=== PATIENT | male | born 1965 | race African-American/Black ===

== ENCOUNTER 2017-02-05 08:38 | Emergency (ER) | payer OTHER ==
[2017-02-05 08:53] VITALS: BP 137/94; PULSE 72; TEMP 98.1; BMI 30.2
--- NOTE | 2017-02-05 09:30 | PDOC ---
History of Present Illness - General Chief Complaint: Pain Stated Complaint: LT LEG BRUISING Time Seen by Provider: 02/05/17 09:05 History Source: Patient Exam Limitations: No Limitations - History of Present Illness Initial Comments: 02/05/17 09:29 c/o pain and swelling to lower left leg/ upper calf. 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 States had a long car ride 2 weeks ago, and was concerned about a DVT. Has no history of deep vein thrombosis but does suffer from varicosities. No fevers, no swelling or erythema to his leg although feels he has a "lump to his upper left calf". No shortness of breath, chest pain palpitations. 02/05/17 10:15 02/05/17 13:09 02/05/17 13:10 02/05/17 13:10 Occurred: reports: yesterday, last week Severity: reports: mild, moderate Pain Location: reports: lower extremity (left ) Modifying Factors: improves with: None Loss of Consciousness: no loss of consciousness Associated Symptoms (Fall): denies symptoms Past History - Travel Traveled outside of the country in the last 30 days: No Close contact w/someone who was outside of country & ill: No - Past Medical History Allergies/Adverse Reactions: Allergies Allergy/AdvReac Type Severity Reaction Status Date / Time No Known Drug Allergies Allergy Verified 02/05/17 08:45 Home Medications: Ambulatory Orders NK [No Known Home Medication] 02/05/17 Anemia: No Asthma: No Cancer: No Cardiac Disorders: No CVA: No COPD: No CHF: No Dementia: No Diabetes: No GI Disorders: No Disorders: No HTN: No Hypercholesterolemia: No Liver Disease: No Seizures: No Thyroid Disease: No Other medical history: none - Surgical History Abdominal Surgery: No Appendectomy: No Cardiac Surgery: No Cholecystectomy: No Lung Surgery: No Neurologic Surgery: No Orthopedic Surgery: Yes (ARTHROSCOPY LEFT KNEE & RIGHT,RIGHT FEMUR FRACTURE) - Immunization History Immunization Up to Date: No - Psycho/Social/Smoking Cessation Hx Anxiety: No Suicidal Ideation: No Smoking Status: Yes Smoking History: Never smoked Have you smoked in the past 12 months: No Number of Cigarettes Smoked Daily: 0 Cigars Per Day: 1 Information on smoking cessation initiated: No Hx Alcohol Use: No Drug/Substance Use Hx: No Substance Use Type: Cocaine, Marijuana Hx Substance Use Treatment: No Review of Systems - Review of Systems Able to Perform ROS?: Yes Is the patient limited Albanian proficient: Yes Constitutional: Yes: See HPI. No: Symptoms Reported, Chills HEENTM: Yes: See HPI. No: Symptoms Reported Respiratory: Yes: See HPI. No: Symptoms reported, Cough, Shortness of Breath, Wheezing ABD/GI: Yes: Symptoms Reported : Yes: Symptoms Reported, See HPI All Other Systems: Reviewed and Negative *Physical Exam - Vital Signs Last Vital Signs Temp Pulse Resp BP Pulse Ox 98.1 F 72 18 137/94 100 02/05/17 08:46 02/05/17 08:46 02/05/17 08:46 02/05/17 08:46 02/05/17 08:46 - Physical Exam Comments: 02/05/17 10:19 General Appearance: Yes: Nourished, Appropriately Dressed. No: Apparent Distress HEENT: positive: EOMI, CITLALY, Normal ENT Inspection, TMs Normal, Pharynx Normal Neck: positive: Supple. negative: Lymphadenopathy (R), Lymphadenopathy (L) Respiratory/Chest: positive: Lungs Clear, Normal Breath Sounds Gastrointestinal/Abdominal: positive: Soft Extremity: positive: Other (extensive tortuous veins bilateral legs, has no gross swelling to one side versus the other, mass palpated to the left upper calf appears to be the superior aspect of his gastrocnemius muscle that is nontender, torturous, or firm. 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 Will ultrasound to rule out DVT and probable referral to vascular surgery Medical Decision Making - Medical Decision Making 02/05/17 10:53 US negative for DVT/ will refer to Vasc fro Vericose veins eval. *DC/Admit/Observation/Transfer Diagnosis at time of Disposition: Varicose veins of both lower extremities - Discharge Dispostion Disposition: HOME Condition at time of disposition: Stable Admit: No - Referrals Referrals: Satya Doshi MD [Staff Physician] - - Patient Instructions Printed Discharge Instructions: DI for Varicose Veins Additional Instructions: Rest, ice to area on and off for 15 minutes 4-6 times a day Avoid heavy lifting or exercise until pain and swelling is resolved or until further directed Keep area highly elevated to reduce swelling Use splints/Bubba wrap as directed Followup with orthopedist in one to 2 days if not improving, if significantly improved may wait one week for followup with orthopedist May use ibuprofen 2-200 mg tablets every 6 hours as needed for pain - Post Discharge Activity Work/School Note: Back to Work
== END 2017-02-05 11:07 | disposition home or self-care (01) ==
LOC: JERFT 08:38 → JER 08:38 → JERFT 11:07
DX: I83.813 Varicose veins of bilateral lower extremities with pain (principal)
CPT/HCPCS: 93971-TC; 99281-25

== ENCOUNTER 2019-03-07 20:49 | Emergency (ER) | payer OTHER | END 2019-03-07 22:30 | disposition home or self-care (01) | LOC: JER 20:49 → JERFT 22:30 ==

== ENCOUNTER 2019-07-23 10:19 | Emergency (ER) | payer OTHER ==
[2019-07-23 10:23] VITALS: BP 120/85; PULSE 98; TEMP 98; BMI 28.0
--- NOTE | 2019-07-23 10:38 | PDOC ---
History of Present Illness - General Chief Complaint: Injury Stated Complaint: INJURY Time Seen by Provider: 07/23/19 10:34 History Source: Patient Exam Limitations: No Limitations - History of Present Illness Initial Comments: 07/23/19 Patient reports striking a wall with right hand early this morning causing injury to right lateral hand. Has obvious deformity with some mild numbness to his fifth and fourth digits. Occurred: reports: yesterday Severity: reports: mild, moderate Pain Location: reports: upper extremity (right hand) Method of Injury: Yes: direct blow Modifying Factors: improves with: None Associated Symptoms (Fall): denies symptoms Past History - Travel Traveled outside of the country in the last 30 days: No Close contact w/someone who was outside of country & ill: No - Past Medical History Allergies/Adverse Reactions: Allergies Allergy/AdvReac Type Severity Reaction Status Date / Time No Known Drug Allergies Allergy Verified 07/23/19 10:23 Home Medications: Ambulatory Orders Ibuprofen [Motrin -] 600 mg PO TID #30 tablet 03/07/19 Omeprazole/Sodium Bicarbonate [Omeprazole-Bicarb 20-1,100 Cap] 1 each PO DAILY # 30 capsule 03/21/19 Anemia: No Asthma: No Cancer: No Cardiac Disorders: No CVA: No COPD: No CHF: No Dementia: No Diabetes: No GI Disorders: No Disorders: No HTN: No Hypercholesterolemia: No Liver Disease: No Seizures: No Thyroid Disease: No - Surgical History Abdominal Surgery: No Appendectomy: No Cardiac Surgery: No Cholecystectomy: No Lung Surgery: No Neurologic Surgery: No Orthopedic Surgery: Yes (ARTHROSCOPY LEFT KNEE & RIGHT,RIGHT FEMUR FRACTURE) - Immunization History Immunization Up to Date: No - Psycho Social/Smoking Cessation Hx Smoking Status: Yes Smoking History: Never smoked Have you smoked in the past 12 months: No Number of Cigarettes Smoked Daily: 0 Cigars Per Day: 1 Hx Alcohol Use: No Drug/Substance Use Hx: No Substance Use Type: Cocaine, Marijuana Hx Substance Use Treatment: No Review of Systems - Review of Systems Able to Perform ROS?: Yes Is the patient limited Pakistani proficient: Yes Constitutional: Yes: Symptoms Reported, See HPI, Malaise HEENTM: Yes: See HPI. No: Symptoms Reported Musculoskeletal: Yes: Symptoms Reported, See HPI, Joint Pain Integumentary: Yes: Symptoms Reported, See HPI, Bruising Neurological: Yes: See HPI. No: Symptoms reported All Other Systems: Reviewed and Negative *Physical Exam - Vital Signs Last Vital Signs Temp Pulse Resp BP Pulse Ox 98 F 98 H 18 120/85 99 07/23/19 10:20 07/23/19 10:20 07/23/19 10:20 07/23/19 10:20 07/23/19 10:20 - Physical Exam General Appearance: Yes: Nourished, Appropriately Dressed, Apparent Distress, Mild Distress, Moderate Distress HEENT: positive: CITLALY, Normal ENT Inspection, TMs Normal, Pharynx Normal Neck: positive: Supple. negative: Tender Respiratory/Chest: positive: Lungs Clear, Normal Breath Sounds Gastrointestinal/Abdominal: positive: Tender, Soft Musculoskeletal: positive: Normal Inspection. negative: Vertebral Tenderness Extremity: positive: Normal Inspection, Tender, Swelling, Other (With pointing/ tenting to right hand lateral aspect. Range of motion of fingers limited secondary to deformity. Unable to make fist secondary to pain and deformity. Neurovascular intact to fingers.). 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 Discussed with JODI Bustillo for orthopedist group Who discussed with . States to splint and will be seen in orthopedic clinic on Wednesday for further treatment. 07/23/19 14:22 Discharge - Discharge Information Problems reviewed: Yes Clinical Impression/Diagnosis: Fracture, boxers Condition: Stable Disposition: HOME - Admission No - Follow up/Referral Referrals: King Guzman MD [Primary Care Provider] - Ruel Hamilton MD [Staff Physician] - - Patient Discharge Instructions Patient Printed Discharge Instructions: DI for Boxer's Fracture Additional Instructions: Rest, ice to area on and off for 15 minutes 4-6 times a day Avoid heavy lifting or exercise until pain and swelling is resolved or until further directed Keep area highly elevated to reduce swelling Use splints/Bubba wrap as directed Followup with orthopedist in one to 2 days if not improving, if significantly improved may wait one week for followup with orthopedist May use ibuprofen every 6 hours as needed for pain - Post Discharge Activity Work/Back to School Note: Back to Work
== END 2019-07-23 12:27 | disposition home or self-care (01) ==
LOC: JERFT 10:19
PROC: 2W3CX1Z Immobilization of Right Lower Arm using Splint (ICD-10-PCS; principal; 2019-07-23)
DX: S62.330A Displaced fracture of neck of second metacarpal bone, right hand, initial encounter for closed fracture (principal); S62.324A Displaced fracture of shaft of fourth metacarpal bone, right hand, initial encounter for closed fracture; W22.09XA Striking against other stationary object, initial encounter; Y93.89 Activity, other specified; Y92.89 Other specified places as the place of occurrence of the external cause; Y99.8 Other external cause status
CPT/HCPCS: 29126; 73130-TC-RT-FY; 99281-25

== ENCOUNTER 2019-07-27 13:50 | Day surgery (SDC) | payer OTHER ==
[2019-07-26 10:27] VITALS: BMI 28.5
--- NOTE | 2019-07-27 14:59 | OP ---
Operative Note - Note: Operative Date: 07/27/19 Pre-Operative Diagnosis: Right distal radius fracture Operation: Right distal radius ORIF Post-Operative Diagnosis: Same as Pre-op Surgeon: Rj Rowe Speeder Frame Tender: Ivy Monteiro Operative Report Dictated: Yes
[2019-07-27] MEDS ORDERED: MIDAZOLAM HCL 2 MG/2 ML SINGLE DOSE VIAL ONE ×2 (16:48)
[2019-07-27] MEDS ORDERED: BUPIVACAINE HCL 0.25% 125 MG/50 ML VIAL ONE (16:48)
[2019-07-27] MEDS ORDERED: PROPOFOL 20 ML ONE ×2 (16:48)
[2019-07-27] MEDS ORDERED: ALBUTEROL SO4 8 GM HFA INHALER IH ONE (16:54)
[2019-07-27] MEDS ORDERED: LIDOCAINE HCL/PF 2% SDV 5ML VIAL ONE (16:54)
[2019-07-27] MEDS ORDERED: BUPIVACAINE HCL/PF 0.25% (2.5MG/ML) 10 ML VIAL IJ ONE (17:41)
[2019-07-27] MEDS ORDERED: PROMETHAZINE HCL 25 MG/1 ML VIAL IVPUSH PRN (18:00)
[2019-07-27] MEDS ORDERED: ONDANSETRON 4 MG/2 ML VIAL IVPUSH PRN (18:00)
[2019-07-27] MEDS ORDERED: oxyCODONE HCL 5 MG TABLET PO PRN ×2 (18:00)
[2019-07-27 18:50] VITALS: TEMP 97.6
[2019-07-27 19:09] VITALS: PULSE 75
[2019-07-27 19:16] VITALS: BP 139/94
--- NOTE | 2019-08-01 14:04 | OP ---
DATE OF OPERATION: 07/27/2019 PREOPERATIVE DIAGNOSES: 1. Right ring finger metacarpal fracture displaced. 2. Right small finger metacarpal fracture neck displaced. POSTOPERATIVE DIAGNOSES: 1. Right ring finger metacarpal fracture displaced. 2. Right small finger metacarpal fracture neck displaced. OPERATIVE PROCEDURE: 1. Open reduction internal fixation of right ring finger metacarpal fracture. 2. Open reduction internal fixation of right small finger metacarpal fracture. SURGEON: Yue Hernandez MD BRUSH OR BROOM CUTTER: JODI Glaser ANESTHESIA: General. COMPLICATIONS: None. ESTIMATED BLOOD LOSS: Minimal. INDICATIONS FOR PROCEDURE: The patient is a 53-year-old male with the above finding indicated for operative treatment. Risks, benefits, alternatives were discussed with the patient at length, proper informed consent was obtained. DESCRIPTION OF PROCEDURE: After proper identification of patient and correct operative site, patient was brought to the operating room and placed supine on the table, bony prominences well padded. General anesthesia was provided by the anesthesiologist adequate for procedure. Right upper extremity was prepped and draped in the usual sterile fashion. A well-padded tourniquet was placed with a sterile prep. Esmarch bandage was exsanguinated right upper extremity. Tourniquet was inflated to 250 mmHg. A small incision was made over the small finger and ring finger metacarpal head. Incision was taken sharply through the skin with blunt dissection through the subcutaneous tissue to the level of the extensor tendon mechanism. A guidewire was placed through the ulnar side of the sizable fibers and extensor tendon mechanism on both fingers into the metacarpal heads reducing the fractures manually and then passing them across the fracture site. Once these were in proper position confirmed radiographically with the fractures reduced, they were overdrilled with a reamer and then in both fingers the metacarpals were fixed with an ExsoMed 3.5-mm metacarpal intramedullary screw. This provided secure, stable fixation of both fractures with satisfactory alignment confirmed radiographically as well as clinically. Wounds were irrigated and repaired with a 5-0 nylon suture. Sterile dressings were applied. Splint was placed. Patient was reversed from anesthesia and brought to recovery room in stable condition. [place] was integral throughout the procedure. Procedure could not have been performed without a skilled operative physician's assistant. YUE HERNANDEZ M.D. [id number]
== END 2019-07-27 19:10 | disposition home or self-care (01) ==
LOC: FASU 13:50
PROVIDERS: ATTEND Orthopaedic Surgery Hand Surgery
PROC: 0PSP04Z Reposition Right Metacarpal with Internal Fixation Device, Open Approach (ICD-10-PCS; 2019-07-27)
PROC: 0PSP04Z Reposition Right Metacarpal with Internal Fixation Device, Open Approach (ICD-10-PCS; principal; 2019-07-27 17:07)
DX: S62.394A Other fracture of fourth metacarpal bone, right hand, initial encounter for closed fracture (principal); S62.396A Other fracture of fifth metacarpal bone, right hand, initial encounter for closed fracture; X58.XXXA Exposure to other specified factors, initial encounter; Y93.9 Activity, unspecified; Y92.9 Unspecified place or not applicable
CPT/HCPCS: 73130-TC-RT-FY; 94760

== ENCOUNTER 2019-09-03 13:48 | Emergency (ER) | payer OTHER ==
[2019-09-03 14:02] VITALS: BP 135/95; PULSE 82; TEMP 98.5; BMI 28.5
--- NOTE | 2019-09-03 14:16 | PDOC ---
History of Present Illness - General Chief Complaint: Suture/Staple Removal(Here) Stated Complaint: LF HAND INJURY (SUTURES) Time Seen by Provider: 09/03/19 14:01 - History of Present Illness Initial Comments: 09/03/19 14:14 53-year-old male presents for wound check from sutures placed in the left hand 8 days ago Past History - Past Medical History Allergies/Adverse Reactions: Allergies Allergy/AdvReac Type Severity Reaction Status Date / Time No Known Drug Allergies Allergy Verified 09/03/19 14:04 Home Medications: Ambulatory Orders Cyclobenzaprine HCl [Flexeril -] 10 mg PO TID PRN 07/26/19 Diclofenac Sodium 50 mg PO TID PRN 07/26/19 Diclofenac Sodium 100 gm TP DAILY PRN 07/26/19 Gabapentin 300 mg PO TID PRN 07/26/19 Ibuprofen [Motrin -] 800 mg PO TID 07/26/19 Oxycodone HCl/Acetaminophen [Percocet 5-325 mg Tablet] 1 tab PO Q4H PRN Amoxicillin/Potassium Clav [Augmentin 875-125 Tablet] 1 each PO BID 7 Days #14 tablet 08/26/19 Anemia: No Asthma: No Cancer: No Cardiac Disorders: No CVA: No COPD: No CHF: No Dementia: No Diabetes: No GI Disorders: No Disorders: No HTN: No Hypercholesterolemia: No Liver Disease: No Seizures: No Thyroid Disease: No - Surgical History Abdominal Surgery: No Appendectomy: No Cardiac Surgery: No Cholecystectomy: No Lung Surgery: No Neurologic Surgery: No Orthopedic Surgery: Yes (ARTHROSCOPY LEFT KNEE & RIGHT,RIGHT FEMUR FRACTURE) - Immunization History Immunization Up to Date: No - Psycho Social/Smoking Cessation Hx Smoking Status: Yes Smoking History: Never smoked Have you smoked in the past 12 months: No Number of Cigarettes Smoked Daily: 0 Cigars Per Day: 1 Hx Alcohol Use: No Drug/Substance Use Hx: No Substance Use Type: Alcohol, Marijuana Hx Substance Use Treatment: No Review of Systems - Review of Systems Constitutional: No: Fever *Physical Exam - Vital Signs Last Vital Signs Temp Pulse Resp BP Pulse Ox 98.5 F 82 17 135/95 100 09/03/19 13:59 09/03/19 13:59 09/03/19 13:59 09/03/19 13:59 09/03/19 13:59 - Physical Exam 09/03/19 14:14 The wound is open without indication of infection or dehiscence. Normal surrounding skin color and temperature Medical Decision Making - Medical Decision Making 09/03/19 14:15 It appears 6-0 Prolene sutures were used. The sutures were removed as they are not holding the wound edges together or approximating the wound. Wet-to-dry dressing was placed this was tolerated well wet-to-dry dressing changes twice daily follow-up with hand surgery Discharge - Discharge Information Problems reviewed: Yes Clinical Impression/Diagnosis: Laceration Condition: Stable Disposition: HOME - Admission No - Follow up/Referral Referrals: King Guzman MD [Primary Care Provider] - Ruel Hamilton MD [Staff Physician] - - Patient Discharge Instructions Additional Instructions: Follow-up with orthopedic hand surgery in 2 to 3 days without fail. Please do the wet-to-dry dressing changes as you was shown in the emergency room twice daily. Return to the emergency room for any issues. Follow-up with orthopedic hand surgery in 2 to 3 days for further evaluation and treatment options. You should do the wet-to-dry dressing changes for the next 4 days twice daily and then go down to once a day. Keep the wound clean with soap and water and left open to air after that as much as possible. Keep the wound clean and left open to air after 4 days. With the wet-to-dry dressing changes done only in the morning. - Post Discharge Activity
== END 2019-09-03 14:24 | disposition home or self-care (01) ==
LOC: JERFT 13:48
DX: Z48.817 Encounter for surgical aftercare following surgery on the skin and subcutaneous tissue (principal); Z48.02 Encounter for removal of sutures
CPT/HCPCS: 99282-25